=== PATIENT | female | born 1960 | race Caucasian/White ===

== ENCOUNTER 2019-11-18 15:25 | Emergency (ER) | payer OTHER ==
[2019-11-18] MEDS ORDERED: ACETAMINOPHEN 325 MG TABLET PO ONE (15:58)
[2019-11-18] MEDS ORDERED: LABETALOL HCL INJ 20 MG/4 ML DISP.SYRIN IV ONE ×2 (15:58→19:21)
--- NOTE | 2019-11-18 16:01 | ER Document Report ---
ED Medical Screen (RME) - General Chief Complaint: High Blood Pressure Stated Complaint: HIGH BLOOD PRESSURE/HEADACHE/CHEST PAIN Time Seen by Provider: 11/18/19 15:52 - HPI Notes: 11/18/19 15:59 Patient is a 59-year-old female with a history of hypothyroidism, fibromyalgia, headaches, anxiety who presents per the direction of [employer] [employer] for evaluation of elevated blood pressure which was 200/105 in their office and having a mild h eadache with mild chest pain. Patient states that she has had headaches like this previously and is not sure if it is related to the blood pressure. This is not the worst headache of her life and did not start as a thunderclap. Her headache has been present for the past couple days. Patient also states that for the past couple months she has been having issues with mild chest pain on the left side that does not radiate which has presented itself again today around lunchtime. She is otherwise feeling well. Denies drug allergies. No fever. No h/o CAD, DVT, PE. Denies SCOTT, fever, neck pain, URI, SOB, n/v/d, Abd pain, dysuria, back pain, or rash. I have treated and performed a rapid initial assessment of this patient. A comprehensive ED assessment and evaluation of the patient, analysis of test results and completion of medical decision making process will be conducted by additional ED providers. PHYSICAL EXAMINATION: GENERAL: Well-appearing, well-nourished and in no acute distress. A&Ox4. Answers questions appropriately. LUNGS: Breath sounds clear to auscultation bilaterally and equal. No wheezes rales or rhonchi. HEART: Regular rate and rhythm without murmurs, rubs, gallops. Extremities: No cyanosis, clubbing, or edema b/l. Serene negative bilaterally. No lower extremity asymmetry. NEUROLOGICAL: Normal speech, normal gait. Cranial nerves grossly intact. PSYCH: Normal mood, normal affect. Past Medical History - Social History Chew tobacco use (# tins/day): No Frequency of alcohol use: None Drug Abuse: None Physical Exam - Vital signs Vitals: Temp Pulse Resp BP Pulse Ox 98.4 F 72 18 211/100 H 98 11/18/19 15:44 11/18/19 15:44 11/18/19 15:44 11/18/19 15:44 11/18/19 15:44 Course - Vital Signs Vital signs: Temp Pulse Resp BP Pulse Ox 98.4 F 72 18 211/100 H 98 11/18/19 15:44 11/18/19 15:44 11/18/19 15:44 11/18/19 15:44 11/18/19 15:44
--- NOTE | 2019-11-18 16:47 | RADIOLOGY REPORT (SQ) ---
EXAM DESCRIPTION: CHEST 2 VIEWS COMPLETED DATE/TIME: 11/18/2019 4:17 pm REASON FOR STUDY: CP COMPARISON: None. EXAM PARAMETERS: NUMBER OF VIEWS: two views TECHNIQUE: Digital Frontal and Lateral radiographic views of the chest acquired. RADIATION DOSE: NA LIMITATIONS: none FINDINGS: LUNGS AND PLEURA: No opacities, masses or pneumothorax. No pleural effusion. MEDIASTINUM AND HILAR STRUCTURES: No masses or contour abnormalities. HEART AND VASCULAR STRUCTURES: Heart normal size. No evidence for failure. BONES: No acute findings. HARDWARE: None in the chest. OTHER: No other significant finding. IMPRESSION: NO ACUTE RADIOGRAPHIC FINDING IN THE CHEST. TECHNICAL DOCUMENTATION: JOB ID: [id number] [employer]- All Rights Reserved Reading location - IP/workstation name: [email or web address]
[2019-11-18 17:04] LABS: ABSOLUTE BASOPHILS # (AUTO) 0.1 10^3/uL (0.0-0.2); ABSOLUTE EOSINOPHILS # (AUTO) 0.1 10^3/uL (0.0-0.6); ABSOLUTE LYMPHOCYTES (AUTO) 1.8 10^3/uL (0.5-4.7); ABSOLUTE MONOCYTES (AUTO) 0.7 10^3/uL (0.1-1.4); ABSOLUTE NEUT (AUTO) 6.1 10^3/uL (1.7-8.2); BASOPHILS % (AUTO) 0.9 % (0-2); EOSINOPHILS % (AUTO) 1.5 % (0-6); HEMATOCRIT 42.6 % (36.0-47.0); HEMOGLOBIN 14.3 g/dL (12.0-15.5); LYMPHOCYTES % (AUTO) 20.5 % (13-45); MEAN CORPUSCULAR HGB CONC 33.4 g/dL (32.0-36.0); MEAN CORPUSCULAR VOLUME 96 fl (80-97); MONOCYTES % (AUTO) 7.5 % (3-13); PLATELET COUNT 305 10^3/uL (150-450); RED BLOOD COUNT 4.45 10^6/uL (3.72-5.28); SEGMENTED NEUTROPHILS % (AUTO) 69.6 % (42-78); TOTAL CELLS COUNTED % (AUTO) 100 %; WHITE BLOOD COUNT 8.7 10^3/uL (4.0-10.5)
[2019-11-18 17:24] LABS: ALBUMIN 5.2 g/dL (3.5-5.0); ALKALINE PHOSPHATASE 112 U/L (38-126); ANION GAP 12 (5-19); ASPARTATE AMINO TRANSFERASE 80 U/L (14-36); BILIRUBIN,DIRECT 0.6 mg/dL (0.0-0.4); BILIRUBIN,TOTAL 0.7 mg/dL (0.2-1.3); BLOOD UREA NITROGEN 20 mg/dL (7-20); CALCIUM 10.2 mg/dL (8.4-10.2); CARBON DIOXIDE 30 mmol/L (22-30); CHLORIDE 101 mmol/L (98-107); GLUCOSE 89 mg/dL (75-110); POTASSIUM 3.7 mmol/L (3.6-5.0); TOTAL PROTEIN 8.4 g/dL (6.3-8.2)
[2019-11-18] MEDS ORDERED: ACETAMINOPHEN 325 MG TABLET ONE (18:59)
--- NOTE | 2019-11-18 19:14 | EKG REPORT ---
SEVERITY:- BORDERLINE ECG - SINUS RHYTHM PROBABLE LEFT ATRIAL ABNORMALITY : Confirmed by: Juan Loving MD 18-Nov-2019 19:13:44
[2019-11-18] MEDS ORDERED: MAGNESIUM OXIDE 400 MG TABLET PO ONE (21:35)
--- NOTE | 2019-11-18 21:55 | ER Document Report ---
ED General - General Chief Complaint: High Blood Pressure Stated Complaint: HIGH BLOOD PRESSURE/HEADACHE/CHEST PAIN Time Seen by Provider: 11/18/19 15:52 TRAVEL OUTSIDE OF THE [place] IN LAST 30 DAYS: No - Related Data Allergies/Adverse Reactions: No Known Allergies Allergy (Verified 11/18/19 19:01) Past Medical History - Social History Smoking Status: Never Smoker Chew tobacco use (# tins/day): No Frequency of alcohol use: None Drug Abuse: None Family History: Reviewed & Not Pertinent Patient has suicidal ideation: No Patient has homicidal ideation: No Physical Exam - Vital signs Vitals: Temp Pulse Resp BP Pulse Ox 98.4 F 72 18 211/100 H 98 11/18/19 15:44 11/18/19 15:44 11/18/19 15:44 11/18/19 15:44 11/18/19 15:44 - Notes Notes: Patient was sent in by family doctor for evaluation of elevated blood pressure. She was there for a routine checkup blood pressure runs remarkably elevated is referred in here. Reports that she has had some borderline blood pressure in the past which usually resolves when they recheck it. Last time she had blood pressure checked was about 6 months ago. Patient does report that she is been having his typical headaches for the past week. Socially with pain in her neck. She has these almost every morning to her fibromyalgia. The last for just a brief period time and then resolve. Again these headaches are somewhat chronic in nature and they do not wake her up. Said however over the past 2 days the headaches have been lasting longer and lasting for several hours but in the same location and related to the neck pain. Any abnormal vision associated with nausea vomiting chest pain shortness of breath fevers or cough. Also reports that she has a history of anxiety that causes intermittent chest p ain and muscle pain Patient was reports that she has occasional chest pains. This been going on for 6 months again is been going on for 6 months. Pain is under her left breast. Shooting Pain that lasts for just a few seconds then resolves. Not related to activity. Is no precipitating or relieving factors. There is no associated shortness of breath diaphoresis or palpitations. Past medical history is significant for hypothyroidism and fibromyalgia. Her thyroid studies were checked by family doctor and were low and her medicines were adjusted today. Cholesterol she has no history of hypertension diabetes or coronary artery disease. Social history used to smoke and drink in the past but quit. Family history negative for heart disease at an early age PHYSICIAN EXAM -vital signs are noted triage note and note from triage reviewed GENERAL: Well-appearing, well-nourished and in _no acute distress HEAD: Atraumatic, normocephalic. EYES: Pupils equal round and reactive to light, extraocular movements intact, sclera anicteric, conjunctiva are normal. ENT: nares patent, oropharynx clear without exudates. Moist mucous membranes. NECK: supple without lymphadenopathy midline tenderness but she does have tenderness in the trapezius muscles LUNGS: Breath sounds clear to auscultation bilaterally and equal. No wheezes rales or rhonchi. HEART: Regular rate and rhythm without murmurs ABDOMEN: Soft, nontender, normoactive bowel sounds. EXTREMITIES: No deformity, no edema. NEUROLOGICAL: Alert and oriented x4. Cranial nerves he has symmetrical smile facies and shoulder shrug. His motor strength is 5/5 bilaterally in the upper and lower extremities. Toes downgoing. Sensation is intact to light touch is a negative Romberg and normal gait PSYCH: Normal mood, normal affect. SKIN: Warm, Dry, normal turgor, no rashes or lesions noted. BACK-nontender in the midline Differential diagnosis includes tension headache migraine headache anxiety tens ion Course - Re-evaluation Re-evalutation: 11/18/19 22:12 ED patient is remained stable continues to have a nonfocal neurological exam no headaches at all. Blood pressure has improved to be given a dose of lisinopril and started on lisinopril. There is no indication to acutely lower the blood pressure more than it has been Medical decision making patient referred in by family doctor for evaluation of elevated blood pressure. Is been borderline in the past which is gradually crept up. Evaluation here is unremarkable she looks well and she can be discharged home there is no indication for admission. I did talk to the patient better elevated LFTs. No previous laboratory studies. Patient says used to be heavy drinker drink 3-4 drinks a night. Advised her that she has some mild evidence of liver damage and she needs to stop drinking need to have her liver test repeated again in 1 to 2 weeks At this time there is no indication for admission. I have discussed the findings with patient/family with return precautions and follow-up recommendations. Verbal discharge instructions given at the bedside and opportunity for questions given. Medication warnings were given if indicated. Patient is in agreement with this plan and has verbalized understanding of return precautions and the need for primary care follow-up as directed.. - Vital Signs Vital signs: Temp Pulse Resp BP Pulse Ox 98.4 F 72 18 177/104 H 95 11/18/19 15:44 11/18/19 15:44 11/18/19 21:31 11/18/19 21:31 11/18/19 21:31 - Laboratory Result Diagrams: 11/18/19 16:42 11/18/19 16:42 Laboratory results interpreted by me: 11/18/19 16:42 Direct Bilirubin 0.6 H AST 80 H Total Protein 8.4 H Albumin 5.2 H - Diagnostic Test Radiology reviewed: Reports reviewed - EKG Interpretation by Me Additional EKG results interpreted by me: 11/18/19 22:19 EKG reveals a normal sinus rhythm with normal axis and QRS and no nonspecific ST wave changes Discharge - Discharge Clinical Impression: Elevated LFTs Hypertension Qualifiers: Hypertension type: unspecified Qualified Code(s): I10 - Essential (primary) hypertension Chest pain Qualifiers: Chest pain type: unspecified Qualified Code(s): R07.9 - Chest pain, unspecified Disposition: HOME, SELF-CARE Instructions: Angiotensin Converting Enzyme Inhibitor Medication ([facility]), High Blood Pressure, Requiring Treatment ([facility]) Additional Instructions: Liver Function Abnormality Your evaluation has shown an abnormality of your liver function. This may not be serious, but you need further testing. Abnormal liver function can be caused by alcohol, medicines, virus infections, heart failure, tumors, gallbladder problems, and many other diseases. But sometimes "abnormal" liver enzymes are "normal" -- it's just the way your liver works and there's nothing wrong. We need to be sure. If your doctor thinks the abnormal test was caused by alcohol, medicine, or a recent virus, we may just repeat the liver enzyme test later. Often, the test shows that the elevated enzymes are back to normal. Usually no treatment is necessary, except for avoiding the cause of the liver dysfunction (such as alcohol or a specific medicine). Further testing could include an ultrasound of the liver, liver scan, or perhaps a liver biopsy in difficult cases. Call the doctor if you become increasingly yellow, vomit repeatedly, begin to bruise or bleed easily, or have worsening abdominal pain.Chest Pain of Unclear Cause The exact cause of your chest pain isn't clear. Fortunately, there is no evidence of a dangerous medical condition. Further testing may be required to find the source of the pain. Most often, we find that this pain is coming from the chest wall -- the muscles or rib joints in the chest. But chest pain can come from the lung and lung lining, the esophagus, the heart valves or heart lining, and even the stomach or gallbladder. Rest. Eat lightly until the pain is gone. We may prescribe medicine for pain and inflammation. You should call the physician immediately if the pain radiates to the shoulder, jaw or arms; if you start to run a fever or develop a cough; or if you develop shortness of breath, or other new or alarming symptoms.High Blood Pressure When your blood pressure was taken today it was elevated. Today's reading was . Pre-hypertension/Hypertension: The patient has been informed that they may have pre-hypertension or Hypertension based on a blood pressure reading in the emergency department. I recommend that the patient call the primary care provider listed on their discharge instructions or a physician of their choice this week to arrange follow up for further evaluation of possible pre-hype rtension or Hypertension. Sometimes, stress or illness causes a temporary elevation of your blood pressure. We suggest that you get your blood pressure measured three more times during the next few days to see if this is more than a temporary abnormality. If your blood pressure is greater than 150/90 on each occasion, you must have treatment. Some simple things you can do to help are: If you have blood pressure medicine but aren't using it regularly, start taking it again. Get some aerobic exercise for at least 20 minutes on a daily basis. (See your doctor before beginning a new exercise program.) Eat a low-fat diet. Lose excess weight. Avoid salty foods and avoid adding salt to any of the foods you eat. Avoid diet pills, decongestants, "energizing" herbs, and other medicines that elevate blood pressure. If left untreated, hypertension greatly enhances your risk for developing heart disease and strokes. Please don't ignore this problem. Please review the discharge instructions, they will tell you about your disease/injury and what you need to return to the ED for Return to the ED if you feel worse or can follow-up with your family doctor Your blood pressure was elevated today needs to be rechecked again in 1 to 2 weeks to determine if need to be on medication or have your medications adjusted. Untreated hypertension can cause heart attack stroke and kidney fail ure Your liver test show evidence of damage. If you continue to drink alcohol you will eventually destroy your liver and . You need to stop drinking or use your alcohol intake significantly to prevent further damage Check your blood pressure twice a week and record the values. Follow-up with your family doctor in 1 week to recheck your blood pressure and liver test Prescriptions: Lisinopril [Prinivil 10 mg Tablet] 10 mg PO DAILY #30 tablet Forms: Elevated Blood Pressure
[2019-11-18] MEDS ORDERED: LISINOPRIL 10 MG TABLET PO ONE ×2 (22:23→22:54)
[2019-11-18 22:36] VITALS: BP 185/106
== END 2019-11-18 22:59 | disposition home or self-care (01) ==
LOC: ER 15:25
DX: I10 Essential (primary) hypertension (principal); R07.9 Chest pain, unspecified; R79.89 Other specified abnormal findings of blood chemistry; R51 Headache
CPT/HCPCS: 93005; 99284; 96374; 36415; 84443; 85025; 80053; 84484; 71046; 93010; J3490